=== PATIENT | male | born 1980 | race Caucasian/White ===

== ENCOUNTER 2019-01-01 22:06 | Inpatient (IN) | payer OTHER ==
[~2019-01-01] VITALS: Ht 177.8 cm; Wt 98.6 kg
[~2019-01-01 22:06] MED LIST: ALBU90OI INH; ALBU90OI6 INH; AMOX500 PO; BENZ100A PO; HYDACE5 PO; HYDCHLSU PO; IBUHYD PO; IBUP400 PO; IBUP600; IBUP600 PO; IBUP800 PO; METPRE4DP PO; Norco 5-325 Ta1 EACH PO; OXYACE5T PO; PENVK250 PO; PENVK500 PO; PERM5TC TOP; PRED10 PO; Percocet 5-3251 EACH PO; TRAM50 PO; TRIA80TC TOP; Veetids 500500 MG PO
[2019-01-02 00:21] LABS: BASOPHILS ABSOLUTE AUTO 0.04 K/mm3 (0.00-0.23); BASOPHILS PERCENT AUTO 1 % (0-2); EOSINOPHILS ABSOLUTE AUTO 0.33 K/mm3 (0.00-0.68); EOSINOPHILS PERCENT AUTO 5 % (0-6); Hemoglobin 14.1 g/dL (13.5-17.5); IMMATURE GRAN ABSOLUTE AUTO 0.03 K/mm3 (0.00-0.10); IMMATURE GRAN PERCENT AUTO 0 % (0-1); LYMPHOCYTES ABSOLUTE AUTO 2.58 K/mm3 (0.84-5.20); LYMPHOCYTES PERCENT AUTO 35 % (21-46); MONOCYTES ABSOLUTE AUTO 0.92 K/mm3 (0.16-1.47); MONOCYTES PERCENT AUTO 13 % (4-13); Mean Corpuscular HGB 29.1 pg (26.0-34.0); Mean Corpuscular Volume 91 fL (80-100); Mean Platelet Volume 9.4 fL (9.1-12.4); NEUTROPHILS ABSOLUTE AUTO 3.42 K/mm3 (1.96-9.15); NEUTROPHILS PERCENT AUTO 47 % (41-73); Platelet Count 300 K/mm3 (150-400); Red Blood Cell Count 4.84 M/mm3 (4.30-5.90); White Blood Cell Count 7.32 K/mm3 (4.00-11.30)
[2019-01-02 00:44] LABS: Alanine Aminotransfer (ALT/SGP 41 U/L (12-78); Albumin, Blood 3.6 g/dL (3.4-5.0); Albumin/Globulin Ratio 0.9 (0.8-1.8); Alk Phos 109 U/L (50-136); Anion Gap 6 mmol/L (6-16); Aspartate Aminotrans (AST/SGOT 28 U/L (12-37); Bilirubin, Total 0.2 mg/dL (0.1-1.0); Blood Urea Nitrogen 15 mg/dL (8-24); CO2, Blood 28 mmol/L (21-32); Calcium, Blood 8.8 mg/dL (8.5-10.1); Chloride, Blood 105 mmol/L (98-108); Creatinine, Blood 0.94 mg/dL (0.60-1.20); Globulin, Blood 4.1 g/dL (2.2-4.0); Glomerular Filtration Rate >60 (60-); Glucose, Blood 91 mg/dL (70-99); Potassium, Blood 3.7 mmol/L (3.5-5.5); Sodium, Blood 139 mmol/L (136-145); Total Protein, Blood 7.7 g/dL (6.4-8.2)
--- NOTE | 2019-01-02 05:56 | NUR ---
SHIFT SUMMARY PT NEW ADMIT THIS AM. AAOX4. NPO. DISCOMFORT TO RIGHT HAND WITHIN TOLERABLE PAIN LEVEL T/O NIGHT, NO NAUSEA/EMESIS. PUNCTURE WOUND TO RIGHT SECOND KNUCKLE OPEN TO AIR WITH NO DRAINAGE T/O NIGHT. HAND NOTABLY SWOLLEN WHEN COMPARED TO LEFT HAND. DENIES N/T, MOVES ALL FINGERS, CAP REFILL BRISK. PT ORIENTED TO ROOM + CALL LIGHT USE. PT RESTING WELL THIS AM, NADN, CALL LIGHT IN REACH.
--- NOTE | 2019-01-02 12:35 | NUR ---
History, Chart, Medications and Allergies reviewed before start of procedure.Patient confirms NPO status and agrees with scheduled surgery. Lungs clear T/O to Auscultation. Surgical site prepped with 2% Chlorhexidine cloth wipe.
--- NOTE | 2019-01-02 15:00 | NUR ---
Patient arrived back from surgical procedure, report received from Zuleima MORSE. Patient was able to transfer to the bed with out any issues. No current complaints of pain or discomfort noted. Will continue to monitor for changes.
--- NOTE | 2019-01-02 17:56 | NUR ---
NO ACUTE CHANGES NOTED. NO CURRENT COMPLAINTS OF PAIN OR DISCOMFORT NOTED. PATIENT IS EATTING AND DRINKING WITH NO ISSUES. NO OTHER ISSUES NOTED AT THIS TIME. WILL CONTINUE TO MONITOR FOR CHANGES.
[2019-01-03 04:44] LABS: BASOPHILS ABSOLUTE AUTO 0.03 K/mm3 (0.00-0.23); BASOPHILS PERCENT AUTO 0 % (0-2); EOSINOPHILS ABSOLUTE AUTO 0.05 K/mm3 (0.00-0.68); EOSINOPHILS PERCENT AUTO 1 % (0-6); Hematocrit 45.3 % (37.0-53.0); Hemoglobin 14.7 g/dL (13.5-17.5); IMMATURE GRAN ABSOLUTE AUTO 0.03 K/mm3 (0.00-0.10); IMMATURE GRAN PERCENT AUTO 0 % (0-1); LYMPHOCYTES ABSOLUTE AUTO 1.87 K/mm3 (0.84-5.20); LYMPHOCYTES PERCENT AUTO 18 % (21-46); MONOCYTES ABSOLUTE AUTO 0.83 K/mm3 (0.16-1.47); MONOCYTES PERCENT AUTO 8 % (4-13); Mean Corpuscular HGB 29.2 pg (26.0-34.0); Mean Corpuscular HGB Conc 32.5 g/dL (31.5-36.5); Mean Corpuscular Volume 90 fL (80-100); Mean Platelet Volume 9.8 fL (9.1-12.4); NEUTROPHILS ABSOLUTE AUTO 7.83 K/mm3 (1.96-9.15); NEUTROPHILS PERCENT AUTO 74 % (41-73); Platelet Count 315 K/mm3 (150-400); RDW Coefficient Variation 13.2 % (11.7-14.2); RDW Standard Deviation 43.2 fL (35.1-46.3); Red Blood Cell Count 5.04 M/mm3 (4.30-5.90); White Blood Cell Count 10.64 K/mm3 (4.00-11.30)
[2019-01-03 05:07] LABS: Anion Gap 6 mmol/L (6-16); Blood Urea Nitrogen 15 mg/dL (8-24); Bun/Creatinine Ratio 17.4 (12.0-20.0); C-REACTIVE PROTEIN, EXT RANGE 0.592 mg/dL (0.000-0.300); CO2, Blood 27 mmol/L (21-32); Calcium, Blood 8.6 mg/dL (8.5-10.1); Chloride, Blood 104 mmol/L (98-108); Creatinine, Blood 0.86 mg/dL (0.60-1.20); Glomerular Filtration Rate >60 (60-); Glucose, Blood 96 mg/dL (70-99); Potassium, Blood 3.9 mmol/L (3.5-5.5); Sodium, Blood 137 mmol/L (136-145)
--- NOTE | 2019-01-03 05:37 | NUR ---
Patient alert and oriented. VSS. Ambulating in hallway. Tolerating PO. No complaints of pain. Antibiotics administered as ordered. IVs Flush with ease.
--- NOTE | 2019-01-03 07:40 | NUR ---
DR DEL CID BY TO SEE PT DRESSING CHANGED OK TO DISCHARGE AFTER BREAKFAST AND MEDICATIONS PT STATED THE SWELLING IS BETTER
[2019-01-03] MEDS ORDERED: HYDR1TAB94 PO (08:12)
[2019-01-03] MEDS ORDERED: AMOCLA875 PO (08:13)
--- NOTE | 2019-01-03 08:59 | NUR ---
01/03/19 0859 [address]ete VERIFICATIONS: EDIT CHART.
--- NOTE | 2019-01-03 09:15 | NUR ---
DISCHARGE INSTRUCTIONS REVIEWED WITH PT VERBALIZED RX GIVEN IV ON HIS LEG REMOVED
--- NOTE | 2019-01-03 09:30 | NUR ---
PT LEFT HIS DRESSING SUPPLIES CALLED AND LEFT A MESSAGE SUPPLIES AT THE DESK
== END 2019-01-03 09:00 | disposition home or self-care (01) | DRG 514 ==
LOC: ER 22:06 → SURS 22:07
PROVIDERS: Emergency Medicine; Orthopaedic Surgery; ADMIT Orthopaedic Surgery
PROC: 0LD70ZZ Extraction of Right Hand Tendon, Open Approach (ICD-10-PCS; principal; 2019-01-02 12:30)
DX: M65.141 Other infective (teno)synovitis, right hand (principal); F17.200 Nicotine dependence, unspecified, uncomplicated; Z88.6 Allergy status to analgesic agent; Y93.9 Activity, unspecified; Y92.009 Unspecified place in unspecified non-institutional (private) residence as the place of occurrence of the external cause; W22.09XA Striking against other stationary object, initial encounter; S61.431A Puncture wound without foreign body of right hand, initial encounter
CPT/HCPCS: 36415; 73120; 80048; 80053; 83605; 85025; 85651; 86140; 87040; 87071; 87075; 87205; 94762; 96365; 97165; 97530; 99284-25; J0696; J1100; J2250; J2405; J3010; J3370; J7030; J7050; J7120